=== PATIENT | male | born 1995 | race Caucasian/White ===

== ENCOUNTER 2016-09-12 05:43 | Inpatient (IN) | payer OTHER ==
[~2016-09-12] VITALS: Ht 188 cm; Wt 114.2 kg
[2016-09-12] VITALS (8 sets, daily range): BP systolic 110–147; BP diastolic 60–82
[2016-09-12] MEDS ORDERED: MORPHINE 4 MG/ML 1ML SYRINGE IV PRN (06:00)
[2016-09-12] MEDS ORDERED: [UNRECOGNIZED DRUG - REMARK] (06:16)
[2016-09-12] MEDS: LR 1,000 ML IV SCH ×2 (06:40→19:05)
[2016-09-12] MEDS: metroNIDAZOLE 500 MG in APPROPRIATE DILUENT 1 EA IV SCH ×3 (07:08→22:21)
[2016-09-12] MEDS: AMPICILLIN SOD/SULBACTAM SOD 3 GM in D5W MINI-BAG PLUS 100 ML IV SCH ×3 (08:15→20:15)
[2016-09-12] MEDS ORDERED: LIDOCAINE 1% SDV INJ 30 ML VIAL As Ordered ONE (16:17)
[2016-09-12] MEDS ORDERED: BUPIVACAINE HCL 0.25% 30 ML VIAL As Ordered ONE (16:18)
[2016-09-12] MEDS ORDERED: SCOPOLAMINE 1.5 MG TRANSDERMAL As Ordered ONE (16:42)
[2016-09-12] MEDS ORDERED: SCOPOLAMINE 1.5 MG TRANSDERMAL TOP ONE (16:45)
[2016-09-12] MEDS ORDERED: GLYCOPYRROLATE INJ 0.2 MG/ML 2 ML VIAL As Ordered ONE (18:11)
[2016-09-12] MEDS ORDERED: ONDANSETRON 4MG/2ML VIAL (J2405) As Ordered ONE (18:11)
[2016-09-12] MEDS ORDERED: dexameTHASONE 4 MG/ML 1ML VIAL (J1100) As Ordered ONE (18:11)
[2016-09-12] MEDS ORDERED: ROCURONIUM BROMIDE 50 MG/5 ML VIAL/SYRINGE As Ordered ONE (18:11)
[2016-09-12] MEDS ORDERED: NEOSTIGMINE 1MG/ML 5 ML SYRINGE (J2710) As Ordered ONE (18:11)
[2016-09-12] MEDS ORDERED: PROPOFOL 200 MG/20 ML VIAL As Ordered ONE (18:11)
[2016-09-12] MEDS ORDERED: METOCLOPRAMIDE INJ 10MG/2ML VIAL (J2765) As Ordered ONE (18:11)
[2016-09-12] MEDS ORDERED: fentaNYL 250 MCG/5 ML INJECTION (J3010) As Ordered ONE (18:11)
[2016-09-12] MEDS ORDERED: MIDAZOLAM INJ 2 MG/2 ML VIAL (J2250) As Ordered ONE (18:11)
[2016-09-12] MEDS ORDERED: LIDOCAINE 2% INJ 100 MG/5 ML SDV (FOR ANES.) As Ordered ONE (18:11)
[2016-09-12] MEDS ORDERED: NORCO, ANEXSIA 5/325MG TABLET (HYDROcodone/ACETAMINOPHEN) PO PRN ×2 (22:45)
[2016-09-12] MEDS: KETOROLAC 30 MG/ML VIAL (J1885) IV PRN (23:14)
[2016-09-13] VITALS: BP 117/69
[2016-09-13] MEDS: AMPICILLIN SOD/SULBACTAM SOD 3 GM in D5W MINI-BAG PLUS 100 ML IV SCH ×4 (00:56→18:29)
[2016-09-13] MEDS: LR 1,000 ML IV SCH (01:00)
[2016-09-13 04:00] VITALS: BP 125/65
[2016-09-13] MEDS: metroNIDAZOLE 500 MG in APPROPRIATE DILUENT 1 EA IV SCH ×3 (05:38→22:49)
[2016-09-13 07:02] LABS: BASO % 0.1 % (0.0-1.0); EOS # 0.1 K/mm3 (0.0-0.50); EOS % 0.6 % (0.0-3.0); LARGE UNSTAINED CELL # 0.1 K/mm3 (0.0-0.4); LARGE UNSTAINED CELL % 0.7 % (0.0-4.0); LYMPH # 1.2 K/mm3 (1.5-6.5); LYMPH % 5.7 % (24.0-44.0); MEAN CORPUSCULAR HEMOGLOBIN 31.3 pg (27.0-33.0); MEAN CORPUSCULAR HGB CONC 34.5 g/dl (32.0-36.5); MEAN CORPUSCULAR VOLUME 90.8 fl (80.0-96.0); MONO # 1.1 K/mm3 (0.0-0.8); MONO % 5.8 % (0.0-5.0); NEUTROPHILS # 16.2 K/mm3 (1.8-7.7); NEUTROPHILS % 87.1 % (36.0-66.0); PLATELET COUNT, AUTOMATED 231 k/mm3 (150-450); RED CELL DISTRIBUTION WIDTH 12.3 % (11.5-14.5); WHITE BLOOD COUNT 18.6 K/mm3 (4.0-10.0)
[2016-09-13 07:22] LABS: ANION GAP 6 MEQ/L (8-16); BLOOD UREA NITROGEN 12 MG/DL (7-18); CALCIUM LEVEL 8.9 MG/DL (8.5-10.1); CARBON DIOXIDE LEVEL 28 MEQ/L (21-32); CHLORIDE LEVEL 106 MEQ/L (98-107); CREATININE FOR GFR 0.77 MG/DL (0.70-1.30); GLUCOSE, FASTING 126 MG/DL (70-105); SODIUM LEVEL 140 MEQ/L (136-145)
[2016-09-13 08:00] VITALS: BP 134/65
[2016-09-13 12:00] VITALS: BP 133/64
[2016-09-13 16:00] VITALS: BP 129/81
--- NOTE | 2016-09-13 17:20 | ROOPDOC ---
[facility] Report Of Operation Report of Operation DATE OF PROCEDURE: 09/13/16 PREPROCEDURE DIAGNOSES: Acute appendicitis. POSTPROCEDURE DIAGNOSES: Acute appendicitis with localized perforation at the tip. PROCEDURE: Laparoscopic appendectomy. SURGEON: Ozzy Meadows MD EMBOSSING TOOL SETTER: TIAN Browning ANESTHESIA: Gen. ESTIMATED BLOOD LOSS: Approximately 20 mL. COMPLICATIONS: None. REMARKS: Acute appendicitis mostly localized at the tip to its adhered to the lateral abdominal wall with perforation at the tip but abscess has been contained by the inflammatory adhesion to the abdominal wall. PROCEDURE NOTE: Our patient is a healthy 21-year-old male with a 2 to three-day history of ongoing right-sided abdominal pain who presented himself at [facility] emergency room for which was found to have evidence for acute appendicitis and subsequently transferred to us for further management. DESCRIPTION OF PROCEDURE: Patient received a dose of Unasyn and metronidazole as perioperative antibiotics. Patient was brought to the operating room, placed supine on the table. Sequential compression device placed for DVT prophylaxis. General endotracheal anesthesia started. The abdomen prepped and draped in usual sterile fashion. After a surgical timeout, we began our surgery Entry into the abdomen done through an incision above the umbilicus. Veress needle inserted on a controlled fashion. Intra-abdominal placement confirmed with saline drop technique. CO2 insufflation started to a pressure of 15 mmHg. Using the same incision a 12 mm port was placed under direct vision of laparoscope. Insertion site was inspected for injury and none was found. He was placed on a Trendelenburg position the right side tilted to about 30 to allow for better visualization of the appendix. 2 working ports were placed at the suprapubic area and left lower quadrant area under direct vision. Operative findings: The appendix is noted inflamed and stuck to the lateral abdominal wall close to the pelvic inlet. On manipulating the appendix, pus came out after the appendix was removed from its adhesion to the abdominal wall. The lateral half of the appendix is moderately inflamed. The proximal half , is thickened but appears viable. The appendix was located, the adhered to the abdominal wall was widely dissected away from the appendix freeing up the appendix from the inflammatory adhesions using [place] instrument and suction irrigation. The Surrounding bowels retracted away from the appendix. This was grasped to pull the base of the appendix into view. The mesoappendix was divided using Harmonic scalpel down to the base. A Vicryl Endoloop was placed to ligate the appendix at its base then divided with a Harmonic Scalpel the stump cauterized. Stump appears healthy. Appendix was then delivered into an Endo Catch bag. After re- insufflation the surgical site was inspected for hemostasis, the visualized fluid collections irrigated and suctioned off until clear return. Surrounding areas of the abdomen and inspected for fluid collections or signs of injury. The abdomen was deflated. All ports removed. The umbilical fascial defect repaired with 0 Vicryl in a mattress fashion. All skin incisions closed with 4- 0 Monocryl in a subcuticular fashion. Steri-Strips and gauze dressing used for wound coverage. Patient was promptly awake and extubated and brought to recovery room stable. All counts of sponges and instruments verified to be correct. MATTY MEADOWS MD Sep 13, 2016 17:20
[2016-09-13] MEDS: KETOROLAC 30 MG/ML VIAL (J1885) IV PRN (18:29)
[2016-09-13 20:00] VITALS: BP 123/63
[2016-09-14] VITALS: BP 128/69
[2016-09-14] MEDS: LR 1,000 ML IV SCH ×3 (00:15→18:00)
[2016-09-14] MEDS: AMPICILLIN SOD/SULBACTAM SOD 3 GM in D5W MINI-BAG PLUS 100 ML IV SCH ×3 (01:15→13:17)
[2016-09-14] MEDS: ONDANSETRON 4MG/2ML VIAL (J2405) IV PRN ×2 (03:33→19:59)
[2016-09-14] MEDS: metroNIDAZOLE 500 MG in APPROPRIATE DILUENT 1 EA IV SCH ×2 (06:42→14:17)
[2016-09-14 07:35] LABS: BASO % 0.2 % (0.0-1.0); EOS % 0.3 % (0.0-3.0); LARGE UNSTAINED CELL # 0.2 K/mm3 (0.0-0.4); LARGE UNSTAINED CELL % 1.3 % (0.0-4.0); LYMPH # 1.1 K/mm3 (1.5-6.5); LYMPH % 6.8 % (24.0-44.0); MEAN CORPUSCULAR HEMOGLOBIN 31.4 pg (27.0-33.0); MEAN CORPUSCULAR HGB CONC 34.2 g/dl (32.0-36.5); MEAN CORPUSCULAR VOLUME 91.8 fl (80.0-96.0); MONO % 7.1 % (0.0-5.0); NEUTROPHILS # 11.4 K/mm3 (1.8-7.7); NEUTROPHILS % 84.3 % (36.0-66.0); PLATELET COUNT, AUTOMATED 203 k/mm3 (150-450); RED CELL DISTRIBUTION WIDTH 12.2 % (11.5-14.5); WHITE BLOOD COUNT 13.5 K/mm3 (4.0-10.0)
[2016-09-14 07:53] LABS: ANION GAP 7 MEQ/L (8-16); BLOOD UREA NITROGEN 11 MG/DL (7-18); CALCIUM LEVEL 8.5 MG/DL (8.5-10.1); CARBON DIOXIDE LEVEL 28 MEQ/L (21-32); CHLORIDE LEVEL 105 MEQ/L (98-107); CREATININE FOR GFR 0.89 MG/DL (0.70-1.30); GLUCOSE, FASTING 96 MG/DL (70-105); POTASSIUM SERUM 3.9 MEQ/L (3.5-5.1); SODIUM LEVEL 140 MEQ/L (136-145)
[2016-09-14 08:00] VITALS: BP 137/66
[2016-09-14] MEDS: KETOROLAC 30 MG/ML VIAL (J1885) IV PRN (13:17)
[2016-09-14] MEDS ORDERED: SLF 3 ML SYR IV PRN (14:30)
[2016-09-14 16:00] VITALS: BP 143/81
[2016-09-14] MEDS: CIPROFLOXACIN 500 MG TAB PO SCH (18:17)
[2016-09-14 19:50] VITALS: BP 144/84
[2016-09-14] MEDS: ACETAMINOPHEN TAB 650MG DOSE (2X325MG) PO PRN (20:27)
[2016-09-14] MEDS: SLF 3 ML SYR IV SCH (22:00)
[2016-09-14] MEDS: metroNIDAZOLE (FLAGYL) 500 MG TAB PO SCH (23:04)
[2016-09-15] VITALS: BP 108/57
[2016-09-15 04:00] VITALS: BP 128/82
[2016-09-15] MEDS: LR 1,000 ML IV SCH ×2 (04:00→14:00)
[2016-09-15] MEDS: ACETAMINOPHEN TAB 650MG DOSE (2X325MG) PO PRN (04:21)
[2016-09-15] MEDS: CIPROFLOXACIN 500 MG TAB PO SCH (06:32)
[2016-09-15] MEDS: metroNIDAZOLE (FLAGYL) 500 MG TAB PO SCH ×2 (06:32→14:00)
[2016-09-15] MEDS: SLF 3 ML SYR IV SCH ×2 (06:32→14:02)
[2016-09-15 06:52] LABS: BASO % 0.2 % (0.0-1.0); EOS # 0.1 K/mm3 (0.0-0.50); EOS % 1.2 % (0.0-3.0); LARGE UNSTAINED CELL # 0.1 K/mm3 (0.0-0.4); LARGE UNSTAINED CELL % 1.2 % (0.0-4.0); LYMPH # 1.1 K/mm3 (1.5-6.5); LYMPH % 8.5 % (24.0-44.0); MEAN CORPUSCULAR HEMOGLOBIN 31.7 pg (27.0-33.0); MEAN CORPUSCULAR HGB CONC 34.6 g/dl (32.0-36.5); MEAN CORPUSCULAR VOLUME 91.6 fl (80.0-96.0); MONO # 0.9 K/mm3 (0.0-0.8); MONO % 7.7 % (0.0-5.0); NEUTROPHILS # 9.2 K/mm3 (1.8-7.7); NEUTROPHILS % 81.2 % (36.0-66.0); PLATELET COUNT, AUTOMATED 224 k/mm3 (150-450); RED CELL DISTRIBUTION WIDTH 12.2 % (11.5-14.5); WHITE BLOOD COUNT 11.3 K/mm3 (4.0-10.0)
[2016-09-15] MEDS ORDERED: GASTROGRAFIN SOLUTION 30ML PO ONE (07:45)
[2016-09-15 08:00] VITALS: BP 144/83
[2016-09-15] MEDS ORDERED: GASTROGRAFIN SOLUTION 30ML (Q9963) PO ONE (08:15)
[2016-09-15] MEDS ORDERED: ISOVUE-370 76% 100ML VIAL (Q9967) As Ordered ONE (09:22)
[2016-09-15] MEDS ORDERED: CIPR-249 PO (14:51)
[2016-09-15] MEDS ORDERED: FLAG500T PO (14:51)
--- NOTE | 2016-09-15 17:49 | REP ---
CT abdomen and pelvis with contrast: 09/15/2016 Clinical history: Fever, status post perforated appendix. I have no prior studies. The patient has undergone a recent appendectomy, again details and the date of that are not known to me. Technique: The patient received oral Gastrografin 10 ml in 290 ml of flavored water per our bowel contrast protocol for two doses and then a bolus of 100 ml of Isovue 370. Findings: CT abdomen/pelvis: Lung bases were notable for some minor subsegmental atelectatic changes in deep sulci bilaterally. No effusion or definite infiltrate. Heart not enlarged. No pericardial thickening or effusion. The aorta and airway are intact. The liver is not enlarged and shows no focal mass. Spleen minimally enlarged up to 15 cm in vertical diameter, but without focal hepatic or splenic lesion. No calcified gallstone, biliary dilatation or adjacent ascites. Pancreas intact. Adrenal glands normal. Kidneys show function without obstruction, stone or mass. No hydronephrosis, hydroureter or ureteral stone. There is some fluid tracking along the lateral conal fascia and peritoneal gutter on the right. There is a rounded fluid collection 3.4 x 2 x 2.3 cm in the right lower lobe. This is posterior to the terminal ileum and inferior to the cecal tip. Edema of the cecal wall and wall of the terminal ileum adjacent. This has a margin around it suggesting a small abscess. I do not see air bubbles within it. It could also be a seroma. Thickening of the lateral conal fascia inferior to it, down to the pelvis is noted. There is small amount of pelvic free fluid. No perforation or free air evident. The colon is largely collapsed with some oral contrast reaching the sigmoid and rectum. Small bowel loops are not abnormally dilated. Great vessels were unremarkable. Bladder intact and without stone or mass. No ventral or inguinal hernia. A periumbilical incision was unremarkable as well. Impression: 1. Small amount of free fluid in the pelvis with thickening of the lateral conal fascia on the right side of the pelvis and extensive infiltration of fat in the pericecal region with a 3.4 x 2 x 2.3 cm fluid collection with thin margins suggesting seroma or abscess. I do not see air bubbles that would clearly define perforation. No free air. Signed by Darrin Cobian MD 09/15/2016 08:16 P
--- NOTE | 2016-09-22 19:56 | DS.PDOC ---
Discharge Summary General Date of Admission Sep 13, 2016 at 09:27 Date of Discharge 09/15/2016 Attending Physician: MATTY STAHL MD Discharge Summary PROCEDURES PERFORMED DURING STAY: Laparoscopic appendectomy ADMITTING DIAGNOSES: 1. Acute appendicitis DISCHARGE DIAGNOSES: 1. Localized perforated appendicitis 2. Postoperative fever COMPLICATIONS/CHIEF COMPLAINT: Appendicitis. HISTORY OF PRESENT ILLNESS: See HPI HOSPITAL COURSE: Patient presented himself to the emergency room on 09/13/2016 with abdominal pain. He was found to have evidence for acute appendicitis. Initial white cell count is 18,000. He was also noted to be febrile to 102 preoperatively. He underwent laparoscopic appendectomy. He had perforation of his appendix but the abscess was localized to the abdominal wall. A drain was left in place for monitoring. He continued to have intermittent but low-grade fever though clinically he continues to improve in terms of his abdominal pain and discomfort. His leukocytosis gradually came down. He was started on clear liquids and promptly advanced to regular diet following day which he tolerated. He was staged to oral antibiotics which he also tolerated. Due to the intermittent fever a CT scan of the abdomen and pelvis was done. No free air was found. There is a small fluid collection along the right gutter which could be beginning abscess though could just be postoperative edema and fluid as this is close to the surgery. I discussed this with the patient. He would like to go home. As he is already taking oral antibiotics and he appears comfortable and nontoxic looking, I agreed on sending him home but would need close follow-up with me in the clinic. He will see me in a week's time. He will call me if he has moderate grade fever. DISCHARGE MEDICATIONS: Please see below. ALLERGIES: Please see below. PHYSICAL EXAMINATION ON DISCHARGE: VITAL SIGNS: Please see below. GENERAL: Awake alert oriented HEENT: [place] palpebral conjunctiva, lips and mucosa are moist NECK: Supple, no lymphadenopathy CARDIOVASCULAR EXAMINATION: Regular heart rate and rhythm RESPIRATORY EXAMINATION: Clear to auscultation bilaterally ABDOMINAL EXAMINATION: Morbidly obese, slightly rounded. Nondistended. Nontender and palpation. Drain site as well as laparoscopic sites are healing well EXTREMITIES: No edema SKIN: Warm and moist NEUROLOGICAL EXAMINATION: Awake alert and oriented LABORATORY DATA: Please see below. IMAGING: CT scan of the abdomen and pelvis done 09/15/2016 PROGNOSIS: Good ACTIVITY: As tolerated. DIET: As tolerated DISCHARGE PLAN: DISPOSITION: 01 Home, Self-Care. DISCHARGE INSTRUCTIONS: 1. Follow up with pain in a week's time 2. Call if with moderate grade fever, feeling sicker than when he came home, diarrhea . DISCHARGE CONDITION: Stable. TIME SPENT ON DISCHARGE: Greater than 30 minutes. Microbiology Microbiology 09/14/16 Blood Culture - Final, Complete NO GROWTH AFTER 5 DAYS Discharge Medications Scheduled Ciprofloxacin HCl (Cipro) 500 Mg Tab, 500 MG PO BID@,18 Metronidazole (Flagyl) 500 Mg Tab, 500 MG PO Q8H Allergies Coded Allergies: Cephalexin (Verified Allergy, Intermediate, 09/14/16) tongue swelling MATTY STAHL MD Sep 22, 2016 19:56
--- NOTE | 2016-09-22 20:01 | HPEPDOC ---
General Surgery H&P Date of Admission History and Physical CHIEF COMPLAINT: Right lower quadrant pain HISTORY OF PRESENT ILLNESS: right sided abdominal pain since Tuesday, initially on and often becoming more constant. Patient otherwise feels well. Denies nausea or vomiting. Denies any fevers or chills. Due to the persistence of the discomfort he was advised by his mom consult. He was seen at the [facility] emergency room. On workup he was found to have evidence for acute appendicitis. I was then contacted and accepted the patient. He drove to the hospital and subsequently admitted to our service. ALLERGIES: Please see below. HOME MEDICATIONS: Please see below. PAST MEDICAL HISTORY: No chronic medical illness PAST SURGICAL HISTORY: T&A, tympanostomy PERSONAL/SOCIAL HISTORY: Smokes a pack every 2 weeks, denies alcohol use, or recreational drug use. REVIEW OF SYSTEMS: GENERAL: Denies chills, fatigue, fever, weight gain and weight loss. HEENT: Denies blurred vision and double vision. Denies ear symptoms. Denies hoarseness. NECK: Denies any neck pain. CARDIOVASCULAR: Denies chest pain and palpitations. MUSCULOSKELETAL: Denies arthralgias, back pain and thrombophlebitis. SKIN: Denies rash. NEUROLOGIC: Denies headache, stroke and transient ischemic attack. PSYCHIATRIC: Denies anxiety and depression. ENDOCRINE: Denies thyroid disease. HEMATOLOGY/ONCOLOGY: Denies any bleeding or clotting disorder. HEART: Denies any chest pains, palpitations, paroxysmal dyspnea, orthopnea. PULMONARY: Denies chronic cough, dyspnea and wheezing. GASTROINTESTINAL: Denies rectal bleeding, family history of colon cancer, constipation, diarrhea, dysphagia, heartburn and jaundice. GENITOURINARY: Denies dysuria, frequency, hematuria and nocturia. ENDOCRINE: Denies polydipsia, polyphagia, polyuria, heat or cold intolerance. INFECTIOUS: Denies any recent upper respiratory tract infection, UTI, need for use of antibiotics. NUTRITION: Reports good appetite. PHYSICAL EXAMINATION: VITAL SIGNS: Please see below. GENERAL APPEARANCE: Patient seen at bedside, appears comfortable. Awake, alert, oriented. HEENT: Normocephalic, atraumatic. [place] palpebral conjunctivae. Anicteric sclerae. Lips moist. CHEST: No chest wall abnormalities. Normal respiratory motion/effort. NECK: Supple. No thyromegaly. No lymphadenopathies. LUNGS: Lung sounds are clear to auscultation bilaterally. No wheezing appreciated. HEART: No chest wall abnormalities. Heart rate and rhythm are regular with no murmurs. ABDOMEN: Abdomen is obese, soft, slightly rounded. Tender over the right lower quadrant area and direct palpation with mild minimal rebound guarding SKIN: Warm, moist. EXTREMITIES: Extremities have no deformities. No edema identified. LABORATORY DATA: Please see below. from [facility] WBC 12.2 Hgb 15.4 Hct. 43.9 Plt. 256 BMP Na 140 K 4.3 Cl 105 CO2 29.3 BUN 10 Cr. 0.85 Glc 105 MICROBIOLOGY: Please see below. IMAGING: . CT Scan of abdomen and pelvis without contrast nonperforated appendicitis, IMPRESSION AND PLAN: Acute Appendicitis with localized peritonitis Patient is counseled for need to have surgery. We will plan for laparoscopic appendectomy. Details of the procedure, risks and benefits were explained to the patient. Consent was given. Vital Signs Vital Signs Date Time Temp Pulse Resp B/P (MAP) Pulse Ox O2 Delivery O2 Flow Rate FiO2 09/12/16 08:23 98.8 61 16 110/60 (77) 99 Room Air Home Medications Scheduled Ciprofloxacin HCl (Cipro) 500 Mg Tab, 500 MG PO BID@ Metronidazole (Flagyl) 500 Mg Tab, 500 MG PO Q8H Allergies Coded Allergies: Cephalexin (Verified Allergy, Intermediate, 09/14/16) tongue swelling MATTY STAHL MD Sep 12, 2016 09:35
== END 2016-09-15 16:00 | disposition home or self-care (01) | DRG 340 ==
LOC: M SDC 05:43 → M PED 05:50 → M SDC 09-13 09:26 → M PED 09-13 09:27
PROVIDERS: ADMIT Surgery; ATTEND Surgery
PROC: 0DTJ4ZZ Resection of Appendix, Percutaneous Endoscopic Approach (ICD-10-PCS; principal; 2016-09-12 09:33)
DX: K35.2 Acute appendicitis with generalized peritonitis (principal); F17.210 Nicotine dependence, cigarettes, uncomplicated; M54.9 Dorsalgia, unspecified

== ENCOUNTER → 2020-08-01 | Outpatient (REF) | payer OTHER ==
[~2020-08-01] MED LIST: CIPR-249 PO; FLAG500T PO; [UNRECOGNIZED DRUG - REMARK]
[2020-08-01 12:50] LABS: BASO # 0.1 10^3/uL (0.0-0.2); BASO % 0.8 % (0.0-1.0); EOS # 0.1 10^3/uL (0.0-0.5); EOS % 1.7 % (0.0-3.0); HEMATOCRIT 42.5 % (42.0-52.0); HEMOGLOBIN 13.7 g/dl (13.5-17.5); LYMPH # 1.7 10^3/uL (1.5-5.0); LYMPH % 25.4 % (24.0-44.0); MEAN CORPUSCULAR HEMOGLOBIN 31.2 pg (27.0-33.0); MEAN CORPUSCULAR HGB CONC 32.2 g/dl (32.0-36.5); MEAN CORPUSCULAR VOLUME 96.8 fl (80.0-96.0); MONO # 0.6 10^3/uL (0.0-0.8); MONO % 9.2 % (2.0-8.0); NEUTROPHILS # 4.1 10^3/uL (1.5-8.5); NEUTROPHILS % 60.8 % (36.0-66.0); PLATELET COUNT, AUTOMATED 115 10^3/uL (150-450); RED BLOOD COUNT 4.39 10^6/uL (4.30-6.10); WHITE BLOOD COUNT 6.7 10^3/uL (4.0-10.0)
[2020-08-01 13:56] LABS: BLOOD UREA NITROGEN 17 MG/DL (7-18); CREATININE FOR GFR 0.68 MG/DL (0.70-1.30); GLOMERULAR FILTRATION RATE > 60.0 (>60); GLUCOSE, FASTING 92 MG/DL (70-100); SODIUM LEVEL 141 MEQ/L (136-145)
[2020-08-01 13:57] LABS: POTASSIUM SERUM 4.4 MEQ/L (3.5-5.1)
[2020-08-01 13:59] LABS: ALBUMIN 3.9 GM/DL (3.2-5.2); ALT/SGPT 72 IU/L (0-32); BILIRUBIN,TOTAL 0.5 MG/DL (0.2-1.0); CALCIUM LEVEL 8.9 MG/DL (8.5-10.1); CARBON DIOXIDE LEVEL 28 mmol/L (20-29); CHLORIDE LEVEL 107 MEQ/L (98-107); TOTAL PROTEIN 7.4 GM/DL (6.4-8.2)
== END ==
LOC: M SFHCPLAZ 11:36
PROVIDERS: ATTEND Physician Assistant Medical
DX: S06.5X9A Traumatic subdural hemorrhage with loss of consciousness of unspecified duration, initial encounter (principal); W18.30XA Fall on same level, unspecified, initial encounter; Y92.009 Unspecified place in unspecified non-institutional (private) residence as the place of occurrence of the external cause

== ENCOUNTER → 2020-08-01 | Outpatient (CLI) | payer OTHER ==
--- NOTE | 2020-08-03 04:00 | REP ---
INDICATION: PAIN IN RT FOOT WB. COMPARISON: 07/22/2012 TECHNIQUE: AP, lateral, bilateral oblique weight-bearing views of the right foot FINDINGS: There is an acute minimally angulated transverse fracture at the distal aspect of the 5th metatarsal bone with overlying soft tissue swelling. IMPRESSION: Acute fracture along the distal aspect of the right 5th metatarsal bone. <Electronically signed by Favio Vides > 08/03/20 0357
== END ==
LOC: M SOG 15:03
PROVIDERS: ATTEND Orthopaedic Surgery Adult Reconstructive Orthopaedic Surgery
DX: S92.351A Displaced fracture of fifth metatarsal bone, right foot, initial encounter for closed fracture (principal)

== ENCOUNTER → 2020-08-08 | Outpatient (CLI) | payer OTHER ==
--- NOTE | 2020-08-10 07:30 | REP ---
INDICATION: PAIN. COMPARISON: 10/30/2010 TECHNIQUE: Internal rotation, external rotation, axillary, and Y-view FINDINGS: There is a possible small inferior spur at the distal aspect of the acromion at the acromioclavicular joint. The glenohumeral joint is normal. The subacromial space is normal. No periarticular calcifications or loose bodies. Surrounding soft tissues are normal. IMPRESSION: As above. <Electronically signed by Favio Vides > 08/10/20 [id number]
== END ==
LOC: M SOG 10:31
PROVIDERS: ATTEND Orthopaedic Surgery Sports Medicine
DX: M25.512 Pain in left shoulder (principal)

== ENCOUNTER → 2020-08-08 | Outpatient (CLI) | payer OTHER ==
--- NOTE | 2020-08-08 10:33 | REP ---
INDICATION: NONDISP FX OF 5TH METATARSAL BONE. COMPARISON: 08/01/2020 TECHNIQUE: AP, lateral, bilateral oblique views of the right foot. FINDINGS: Fracture along the distal aspect of the 5th metatarsal bone again noted and similar in appearance and position. No other acute fracture or dislocation identified. IMPRESSION: No change in the appearance of the distal 5th metatarsal bone fracture. <Electronically signed by Favio Vides > 08/08/20 1024
== END ==
LOC: M SOG 09:33
PROVIDERS: ATTEND Orthopaedic Surgery Adult Reconstructive Orthopaedic Surgery
DX: S92.354A Nondisplaced fracture of fifth metatarsal bone, right foot, initial encounter for closed fracture (principal); M25.512 Pain in left shoulder; W18.30XA Fall on same level, unspecified, initial encounter; Y92.009 Unspecified place in unspecified non-institutional (private) residence as the place of occurrence of the external cause

== ENCOUNTER → 2020-09-05 | Outpatient (CLI) | payer OTHER ==
--- NOTE | 2020-09-05 09:00 | REP ---
INDICATION: CONTUSION OF LEFT SHOULDER, SUBSEQUENT ENCOUNTER. COMPARISON: No comparison chest x-ray. TECHNIQUE: Three views... FINDINGS: The lungs are well inflated and free of infiltrate. The pleural angles are sharp. The heart size is normal. Pulmonary vasculature is not increased. No significant bony abnormality is seen. IMPRESSION: Negative chest x-ray. <Electronically signed by Dawit Giraldo > 09/05/20 0857
== END ==
LOC: M PLAIMG 08:39
PROVIDERS: ATTEND Physician Assistant Medical
DX: S40.012D Contusion of left shoulder, subsequent encounter (principal)

== ENCOUNTER → 2020-09-05 | Outpatient (CLI) | payer OTHER ==
--- NOTE | 2020-09-05 08:34 | REP ---
INDICATION: NONDISP FX 5TH METATARSAL RIGHT FOOT. COMPARISON: Comparison right foot radiographs are from August 01, 2020.. TECHNIQUE: Four views of the right foot are provided. FINDINGS: Four views of the right foot demonstrate healing periosteal reaction and callus formation at the site of the slightly impacted fracture of the distal aspect of the 5th metatarsal. This is otherwise nondisplaced. It is unchanged in position. IMPRESSION: Healing distal 5th metatarsal fracture. <Electronically signed by Dawit Giraldo > 09/05/20 [id number]
== END ==
LOC: M SOG 07:58
PROVIDERS: ATTEND Orthopaedic Surgery Adult Reconstructive Orthopaedic Surgery
DX: S92.354A Nondisplaced fracture of fifth metatarsal bone, right foot, initial encounter for closed fracture (principal); X58.XXXA Exposure to other specified factors, initial encounter; Y92.89 Other specified places as the place of occurrence of the external cause; Y93.89 Activity, other specified; Y99.8 Other external cause status

== ENCOUNTER 2020-09-17 12:50 | Outpatient (RCR) | payer OTHER | END 2020-09-20 | LOC: M PT 12:50 | PROVIDERS: ATTEND Orthopaedic Surgery Sports Medicine | DX: M25.312 Other instability, left shoulder (principal) ==

== ENCOUNTER → 2020-10-04 | Outpatient (CLI) | payer OTHER ==
--- NOTE | 2020-10-04 12:54 | REP ---
INDICATION: TROCHANTERIC BURSITIS, R/O OCCULT FX/HEMATOMA. COMPARISON: None. TECHNIQUE: Routine scans obtained FINDINGS: There is contusion of the gluteus walter muscle with increased signal throughout and a small hematoma between the gluteus walter and medius muscles. There is no abnormal bony signal patel is no tendon or ligament injury. There is no evidence of trochanteric bursitis PA there is no labral injury. IMPRESSION: Contusion and small hematoma gluteus walter. No bony injury. <Electronically signed by Ian Shah > 10/04/20 [id number]
== END ==
LOC: M RAD 10:00
PROVIDERS: ATTEND Physician Assistant
DX: M70.62 Trochanteric bursitis, left hip (principal)

== ENCOUNTER → 2020-11-18 | Outpatient (CLI) | payer OTHER ==
[2020-11-18 13:23] LABS: BASO % 0.4 % (0.0-1.0); EOS # 0.1 10^3/uL (0.0-0.5); HEMATOCRIT 44.5 % (42.0-52.0); LYMPH # 2.7 10^3/uL (1.5-5.0); LYMPH % 37.2 % (24.0-44.0); MEAN CORPUSCULAR HEMOGLOBIN 29.6 pg (27.0-33.0); MEAN CORPUSCULAR HGB CONC 33.7 g/dl (32.0-36.5); MEAN CORPUSCULAR VOLUME 87.8 fl (80.0-96.0); MONO # 0.7 10^3/uL (0.0-0.8); NEUTROPHILS # 3.7 10^3/uL (1.5-8.5); NEUTROPHILS % 50.6 % (36.0-66.0); PLATELET COUNT, AUTOMATED 212 10^3/uL (150-450); RED BLOOD COUNT 5.07 10^6/uL (4.30-6.10); WHITE BLOOD COUNT 7.2 10^3/uL (4.0-10.0)
[2020-11-18 13:41] LABS: HEMOGLOBIN A1c 5.1 %
[2020-11-18 13:53] LABS: ALBUMIN 4.1 GM/DL (3.2-5.2); ALT/SGPT 51 U/L (12-78); BILIRUBIN,TOTAL 0.5 MG/DL (0.2-1.0); BLOOD UREA NITROGEN 12 MG/DL (7-18); CALCIUM LEVEL 9.3 MG/DL (8.5-10.1); CARBON DIOXIDE LEVEL 30 MEQ/L (21-32); CHLORIDE LEVEL 106 MEQ/L (98-107); CHOLESTEROL LEVEL 185 MG/DL (<200); CHOLESTEROL RISK RATIO 5.606 (<5); GLOMERULAR FILTRATION RATE > 60.0 (>60); GLUCOSE, FASTING 95 MG/DL (70-100); HDL CHOLESTEROL 33 MG/DL (>40); LDL CHOLESTEROL 104 MG/DL (<100); NON-HDL-C 152 MG/DL; POTASSIUM SERUM 4.4 MEQ/L (3.5-5.1); SODIUM LEVEL 139 MEQ/L (136-145); TOTAL PROTEIN 7.4 GM/DL (6.4-8.2); TRIGLYCERIDES LEVEL 239 MG/DL (<150)
== END ==
LOC: M PLALAB 10:02
PROVIDERS: ATTEND Physician Assistant Medical
DX: Z13.1 Encounter for screening for diabetes mellitus (principal)

== ENCOUNTER → 2023-01-27 | Outpatient (CLI) | payer OTHER | LOC: M PLAIMG 07:05 | PROVIDERS: ATTEND Physician Assistant | DX: M25.511 Pain in right shoulder (principal) ==